=== PATIENT | female | born 1950 | race Two or more races ===

== ENCOUNTER 2019-12-16 16:08 | Emergency (ER) | payer MEDICARE, MEDICAID ==
[~2019-12-16] VITALS: Ht 165.1 cm; Wt 54.0 kg
[2019-12-16] MEDS ORDERED: MORPHINE SULFATE 4 MG/ML CPJ (NOT FOR IM USE) IV ONE ×5 (17:56→23:45)
[2019-12-16 18:57] LABS: BASOPHILS % 0.7 % (0.0-2.0); HEMATOCRIT. 38.3 % (36.0-48.0); HEMOGLOBIN. 12.9 g/dL (12.0-16.0); LYMPHOCYTES % 15.3 % (20.0-50.0); MEAN CORPUSCULAR HEMOGLOBIN 30.3 pg (28.0-32.0); MEAN CORPUSCULAR VOLUME 90.2 fL (81.0-99.0); MEAN PLATELET VOLUME 9.9 fl (7.4-10.4); MONOCYTES % 4.8 % (2.0-8.0); NEUTROPHILS % 78.2 % (40.0-76.0); PLATELET 223 x1000/uL (130-400); RED BLOOD CELL COUNT 4.25 mill/uL (4.2-5.4); RED CELL DISTRIBUTION WIDTH 14.3 % (11.6-14.6)
[2019-12-16 19:07] LABS: CHLORIDE 107 mEq/L (98-107)
[2019-12-16] MEDS ORDERED: ONDANSETRON HCL 4MG/2ML INJ IV ONE (21:15)
[2019-12-16] MEDS ORDERED: KETAMINE HCL 50 MG/ML 10ML IV ONE (21:15)
[2019-12-16] MEDS ORDERED: CEFAZOLIN 1000MG PREMIX 50 ML IV ONE (22:30)
[2019-12-17] MEDS ORDERED: HYDROCODONE/ACETAMINOPHEN 10/325MG TABLET PO ONE (03:15)
[2019-12-17] MEDS ORDERED: OXYCODONE HCL/ACETAMINOPHEN 5/325MG TABLET PO ONE (08:30)
[2019-12-17 09:50] VITALS: BP 141/64
== END 2019-12-17 10:44 ==
LOC: ER 16:08 → CANBEDREQ 23:04 → ER 12-17 10:44
DX: S52.691B Other fracture of lower end of right ulna, initial encounter for open fracture type I or II (principal); S52.591B Other fractures of lower end of right radius, initial encounter for open fracture type I or II; S82.892A Other fracture of left lower leg, initial encounter for closed fracture; S80.212A Abrasion, left knee, initial encounter; I49.9 Cardiac arrhythmia, unspecified; R51 Headache; V43.52XA Car driver injured in collision with other type car in traffic accident, initial encounter; Y93.89 Activity, other specified; Y92.488 Other paved roadways as the place of occurrence of the external cause; Y99.8 Other external cause status
CPT/HCPCS: 25605; 36415; 70450; 70490; 71045; 72170; 73070; 73090; 73100; 73120; 73590; 73600; 73620; 80053; 83690; 85025; 93005; 96365; 96375; 96376; 99152; 99285; J0690; J2270; J2405; J3490